=== PATIENT | male | born 1970 | race Caucasian/White ===

== ENCOUNTER → 2016-10-27 | Outpatient (CLI) | payer OTHER ==
--- NOTE | ~2016-10-27 | 2DMMODE ---
[facility] [address] [place] [address] 2 D/M-MODE ECHOCARDIOGRAM Name: LAURA PEOPLES Room #: REG [facility]#: [id number] Admission: 10/27/16 Attend Phys: Andres Bailey Discharge: Date of : 66 Date of Service: 10/27/16 1144 Report #: [id number] THIS REPORT FOR: //name// APPROVED REPORT Study performed: 10/27/2016 10:28:30 EXAM: Comprehensive 2D, Doppler, and color-flow Echocardiogram Patient Location: Out-Patient Status: routine Other Information Study Quality: Adequate Indications Chest pain, anxiety. 2D Dimensions RVDd: 34.19 mm LVEF(%): 60.79 (>50%) IVSd: 9.40 (7-11mm) LVOT Diam: 23.89 (18-24mm) LVDd: 58.26 mm PWd: 9.42 (7-11mm) Ascending Ao: 35.27 (22-36mm) LVDs: 39.01 (25-40mm) Aortic Root: 37.02 mm Day's LVEF: 60.79 % Volumes Left Atrial Volume (Systole) Single Plane 4CH: 31.90 mL Single Plane 2CH: 43.88 mL LA ESV Index: 18.00 mL/m2 Aortic Valve AoV Peak Khang.: 1.12 m/s AO Peak Gr.: 4.98 mmHg LVOT Max P.49 mmHg LVOT Max V: 0.79 m/s CATALINA Vmax: 3.16 cm2 Mitral Valve E/A Ratio: 1.5 MV Decel. Time: 173.35 ms MV E Max Khang.: 0.77 m/s MV A Khang.: 0.51 m/s MV PHT: 50.27 ms IVRT: 96.89 ms [facility] [place] [address] 2 D/M-MODE ECHOCARDIOGRAM Name: LAURA PEOPLES Room #: [facility]#: [id number] Admission: 10/27/16 Attend Phys: Andres Bailey Discharge: Date of : 66 Date of Service: 10/27/16 1144 Report #: [id number] Pulmonary Valve PV Peak Khang.: 0.77 m/s PV Peak Gr.: 2.36 mmHg Pulmonary Vein P Vein S: 0.58 m/s P Vein A: 0.26 m/s P Vein D: 0.52 m/s P Vein A Dur.: 120.0 msec P Vein S/D Ratio: 1.12 Tricuspid Valve TR Peak Khang.: 1.77 m/s RAP Estimate: 5.00 mmHg TR Peak Gr.: 12.53 mmHg PA Pressure: 13.00 mmHg Left Ventricle The left ventricle is normal size. There is normal left ventricular wall thickness. Left ventricular systolic function is low normal. LVEF is 50%. The left ventricular diastolic function is normal. Right Ventricle The right ventricle is normal size. The right ventricular systolic function is normal. Atria The left atrium size is normal. The right atrium size is normal. Aortic Valve The aortic valve is normal in structure. No aortic regurgitation is present. There is no aortic valvular stenosis. Mitral Valve The mitral valve is normal in structure. Trace to mild mitral regurgitation. No evidence of mitral valve stenosis. Tricuspid Valve The tricuspid valve is normal in structure. There is trace tricuspid regurgitation. The right atrial pressure is estimated at 5 mmHg. Estimated PAP of 18mmHg. Pulmonic Valve The pulmonary valve is normal in structure. Mild pulmonic regurgitation. [employer] [facility] [address] [place] [address] 2 D/M-MODE ECHOCARDIOGRAM Name: SHELTONLAURA Room #: REG [facility]#: [id number] Admission: 10/27/16 Attend Phys: Andres Bailey Discharge: Date of : 66 Date of Service: 10/27/16 1144 Report #: [id number] The aortic root is normal in size. The ascending aorta is normal in size. IVC is normal in size and collapses >50% with inspiration. Pericardium There is no pericardial effusion. <Conclusion> The left ventricle is normal size. LVEF is 50%. The aortic valve is normal in structure. The mitral valve is normal in structure. The tricuspid valve is normal in structure. There is trace tricuspid regurgitation. The right atrial pressure is estimated at 5 mmHg. Estimated PAP of 18mmHg. The pulmonary valve is normal in structure. <ELECTRONICALLY SIGNED> By: Andres Monterroso MD 10/27/16 1144 1144 1144 Andres Monterroso MD /INF
== END ==
LOC: CV 07:13
DX: R07.9 Chest pain, unspecified (principal); R00.2 Palpitations